=== PATIENT | female | born 1955 | race Hispanic/Latino ===

== ENCOUNTER 2019-09-23 17:13 | Emergency (ER) | payer MEDICAID, SELFPAY ==
[2019-09-23 18:36] LABS: #Eosinphils 0.2 thou/uL (0.0-0.7); #Lymphocytes 1.7 thou/uL (1.20-3.40); #Monocytes 0.6 thou/uL (0.11-0.59); #Neutrophils 4.3 thou/uL (1.40-6.50); %Basophils 0.6 % (0.0-1.0); %Eosinophils 3.4 % (0.0-10.0); %Lymphocytes 24.4 % (21.0-51.0); %Monocytes 8.8 % (0.0-10.0); %Neutrophils 62.8 % (42.0-75.0); Hemoglobin 12.1 g/dL (12.0-16.0); Mean Corpuscular HGB CONC 34.4 g/dL (32.0-36.0); Mean Corpuscular Hemoglobin 31.1 pg (27.0-31.0); Mean Corpuscular Volume 90.4 fL (78.0-98.0); Mean Platelet Volume 8.1 fL (7.4-10.4); Platelet Count 290 thou/uL (130-400); RBC Distribution Width 13.1 % (11.5-14.5); Red Blood Cell (RBC) Count 3.89 mill/uL (4.20-5.40); White Blood Cell (WBC) Count 6.9 thou/uL (4.8-10.8)
[2019-09-23 18:58] LABS: ALT (SGPT) 8 U/L (8-55); AST (SGOT) 16 U/L (5-34); Albumin 2.8 g/dL (3.4-4.8); Alkaline Phosphatase 136 U/L (40-110); Anion Gap 11 mmol/L (10-20); BUN (Urea Nitrogen) 35 mg/dL (9.8-20.1); Bilirubin, Total Less than 0.2 mg/dL (0.2-1.2); Calc. Creatinine Clearance 0 mL/min (70-130); Calcium 7.6 mg/dL (7.8-10.44); Carbon Dioxide 22 mmol/L (23-31); Chloride 111 mmol/L (98-107); Estimated GFR-MDRD 17; Globulin 2.8 g/dL (2.4-3.5); Glucose 135 mg/dL (80-115); Protein, Total 5.6 g/dL (6.0-8.3); Sodium 139 mmol/L (136-145)
[2019-09-23] MEDS ORDERED: hydrALAZINE 20 MG/ML VIAL ONE (21:56)
[2019-09-23 22:39] LABS: CKMB 1.6 ng/mL (0-6.6)
[2019-09-23 23:04] LABS: CKMB 1.7 ng/mL (0-6.6)
== END 2019-09-23 22:56 | disposition home or self-care (01) ==
LOC: ERS 17:13
DX: I11.9 Hypertensive heart disease without heart failure (principal); E78.5 Hyperlipidemia, unspecified; E78.00 Pure hypercholesterolemia, unspecified; E11.9 Type 2 diabetes mellitus without complications; E66.9 Obesity, unspecified; I10 Essential (primary) hypertension; Z79.82 Long term (current) use of aspirin; Z79.899 Other long term (current) drug therapy
CPT/HCPCS: 36415; 80053; 82553; 84484; 85025; 93005; 96374; J0360

== ENCOUNTER 2020-06-09 11:22 | Inpatient (IN) | payer SELFPAY ==
[2020-06-09 12:03] LABS: #Basophils 0.1 thou/uL (0.0-0.2); #Eosinphils 0.5 thou/uL (0.0-0.7); #Lymphocytes 1.3 thou/uL (1.20-3.40); #Monocytes 0.6 thou/uL (0.11-0.59); #Neutrophils 6.1 thou/uL (1.40-6.50); %Basophils 1.2 % (0.0-1.0); %Eosinophils 5.8 % (0.0-10.0); %Lymphocytes 15.4 % (21.0-51.0); %Monocytes 7.4 % (0.0-10.0); %Neutrophils 70.3 % (42.0-75.0); Mean Corpuscular HGB CONC 33.8 g/dL (32.0-36.0); Mean Corpuscular Hemoglobin 30.7 pg (27.0-31.0); Mean Corpuscular Volume 90.8 fL (78.0-98.0); Mean Platelet Volume 7.8 fL (7.4-10.4); Platelet Count 286 thou/uL (130-400); RBC Distribution Width 12.6 % (11.5-14.5); Red Blood Cell (RBC) Count 2.62 mill/uL (4.20-5.40); White Blood Cell (WBC) Count 8.7 thou/uL (4.8-10.8)
[2020-06-09 12:30] LABS: ALT (SGPT) 9 U/L (8-55); AST (SGOT) 11 U/L (5-34); Albumin 3.4 g/dL (3.4-4.8); Alkaline Phosphatase 131 U/L (40-110); Anion Gap 18 mmol/L (10-20); BUN (Urea Nitrogen) 73 mg/dL (9.8-20.1); Bilirubin, Total 0.3 mg/dL (0.2-1.2); Calc. Creatinine Clearance 0 mL/min (70-130); Calcium 7.7 mg/dL (7.8-10.44); Carbon Dioxide 16 mmol/L (23-31); Chloride 111 mmol/L (98-107); Globulin 3.2 g/dL (2.4-3.5); Glucose 132 mg/dL (80-115); Potassium 4.7 mmol/L (3.5-5.1); Protein, Total 6.6 g/dL (5.8-8.1); Sodium 140 mmol/L (136-145)
[2020-06-09 12:46] LABS: Bacteria/HPF None Seen HPF (None Seen); Bilirubin Negative (Negative); Blood, Urine Trace (Negative); Clarity Clear (Clear); Glucose, Urine (Dipstick) 100 mg/dL (Negative); Ketone, Urine Negative (Negative); Leukocyte 25 Leu/uL (Negative); Nitrite Negative (Negative); Protein, Urine (Dipstick) 300 mg/dL (Neg-Trace); RBC/HPF 0-3 HPF (0-3); Specific Gravity, Urine 1.012 (1.002-1.036); Squamous Epithelial 0-3 HPF (0-3); Urobilinogen Normal mg/dL (Less than 2)
[2020-06-09] MEDS ORDERED: cefTRIAXone\\ROCEPHIN 1 GM VIAL ONE (14:18)
[2020-06-09] MEDS ORDERED: hydrALAZINE 20 MG/ML VIAL SLOW IVP PRN (14:44)
[2020-06-09] MEDS ORDERED: hydrALAZINE 20 MG/ML VIAL ONE (14:57)
[2020-06-09] MEDS ORDERED: Furosemide 20 MG/2 ML VIAL ONE ×2 (14:58→15:02)
[2020-06-09] MEDS ORDERED: cloNIDine 0.1 MG TAB ONE (14:58)
[2020-06-09] MEDS ORDERED: Acetaminophen 325 MG TAB PO PRN (17:11)
[2020-06-09] MEDS ORDERED: Acetaminophen 650 MG Suppository PR PRN (17:11)
[2020-06-09] MEDS ORDERED: Dextrose 5% in Water 1,000 ML IV PRN (17:52)
[2020-06-09] MEDS ORDERED: HumaLOG 300 UNITS/3 ML VIAL SC PRN ×2 (17:52)
[2020-06-09] MEDS ORDERED: Dextrose 50% Abboject 50 ML SYRINGE SLOW IVP PRN (17:52)
[2020-06-09 18:05] VITALS: BMI 47.8
[2020-06-09 18:28] LABS: Anion Gap 18 mmol/L (10-20); BUN (Urea Nitrogen) 69 mg/dL (9.8-20.1); Calc. Creatinine Clearance 19 mL/min (70-130); Calcium 7.1 mg/dL (7.8-10.44); Carbon Dioxide 15 mmol/L (23-31); Chloride 112 mmol/L (98-107); Glucose 101 mg/dL (80-115); Phosphorus 5.5 mg/dL (2.3-4.7); Potassium 4.5 mmol/L (3.5-5.1); Sodium 140 mmol/L (136-145)
[2020-06-09] MEDS: Metoprolol Tartrate 50 MG TAB PO SCH (20:07)
[2020-06-09] MEDS: hydrALAZINE 25 MG TAB PO SCH (20:08)
[2020-06-09] MEDS ORDERED: Atorvastatin Calcium 20 MG TAB PO SCH (21:00)
[2020-06-10 02:23] LABS: SARS-CoV-2 PCR by NAA Not Detected (NotDetected)
[2020-06-10 06:21] LABS: #Basophils 0.1 thou/uL (0.0-0.2); #Eosinphils 0.4 thou/uL (0.0-0.7); #Lymphocytes 1.3 thou/uL (1.20-3.40); #Monocytes 0.7 thou/uL (0.11-0.59); #Neutrophils 5.4 thou/uL (1.40-6.50); %Basophils 0.9 % (0.0-1.0); %Eosinophils 5.6 % (0.0-10.0); %Lymphocytes 16.7 % (21.0-51.0); %Monocytes 8.4 % (0.0-10.0); %Neutrophils 68.4 % (42.0-75.0); Hemoglobin 7.3 g/dL (12.0-16.0); Mean Corpuscular HGB CONC 32.7 g/dL (32.0-36.0); Mean Corpuscular Hemoglobin 29.6 pg (27.0-31.0); Mean Corpuscular Volume 90.6 fL (78.0-98.0); Mean Platelet Volume 7.8 fL (7.4-10.4); Platelet Count 257 thou/uL (130-400); RBC Distribution Width 12.6 % (11.5-14.5); Red Blood Cell (RBC) Count 2.45 mill/uL (4.20-5.40); White Blood Cell (WBC) Count 7.8 thou/uL (4.8-10.8)
[2020-06-10 06:38] LABS: Anion Gap 18 mmol/L (10-20); BUN (Urea Nitrogen) 69 mg/dL (9.8-20.1); Calc. Creatinine Clearance 18 mL/min (70-130); Calcium 7.4 mg/dL (7.8-10.44); Carbon Dioxide 16 mmol/L (23-31); Chloride 109 mmol/L (98-107); Glucose 91 mg/dL (80-115); Potassium 4.7 mmol/L (3.5-5.1); Sodium 138 mmol/L (136-145)
[2020-06-10] MEDS ORDERED: glipiZIDE 5 MG TAB PO SCH (07:30)
[2020-06-10] MEDS: hydrALAZINE 25 MG TAB PO SCH ×2 (07:54→14:53)
[2020-06-10] MEDS: Metoprolol Tartrate 50 MG TAB PO SCH (07:54)
[2020-06-10 09:45] LABS: Anion Gap 17 mmol/L (10-20); BUN (Urea Nitrogen) 69 mg/dL (9.8-20.1); Calc. Creatinine Clearance 18 mL/min (70-130); Calcium 7.4 mg/dL (7.8-10.44); Carbon Dioxide 17 mmol/L (23-31); Chloride 109 mmol/L (98-107); Glucose 123 mg/dL (80-115); Potassium 4.6 mmol/L (3.5-5.1); Sodium 138 mmol/L (136-145)
[2020-06-10] MEDS: Sodium Bicarbonate Tab 325 MG TAB PO SCH ×2 (10:51→14:53)
[2020-06-10 11:36] VITALS: TEMP 97.9
[2020-06-10 16:00] VITALS: BP 176/77
[2020-06-10] MEDS ORDERED: Calcium Carbonate 500 MG ChewTAB PO SCH (21:00)
[2020-06-11] MEDS ORDERED: Ferrous Gluconate 324 MG TAB PO SCH (08:00)
== END 2020-06-10 16:35 | disposition home or self-care (01) | DRG 683 ==
LOC: ERS 11:22 → T4-B 14:39
PROVIDERS: ADMIT Internal Medicine; ATTEND Internal Medicine
DX: N17.9 Acute kidney failure, unspecified (principal); E87.2 Acidosis; I12.0 Hypertensive chronic kidney disease with stage 5 chronic kidney disease or end stage renal disease; N39.0 Urinary tract infection, site not specified; Z68.42 Body mass index [BMI] 45.0-49.9, adult; I16.0 Hypertensive urgency; E87.5 Hyperkalemia; E66.9 Obesity, unspecified; K52.9 Noninfective gastroenteritis and colitis, unspecified; N18.5 Chronic kidney disease, stage 5; E78.00 Pure hypercholesterolemia, unspecified; D63.1 Anemia in chronic kidney disease; E83.51 Hypocalcemia; E11.22 Type 2 diabetes mellitus with diabetic chronic kidney disease; Z20.822 Contact with and (suspected) exposure to COVID-19; Z90.710 Acquired absence of both cervix and uterus; Z90.49 Acquired absence of other specified parts of digestive tract; Z79.899 Other long term (current) drug therapy; Z79.82 Long term (current) use of aspirin; Z83.3 Family history of diabetes mellitus
CPT/HCPCS: 36415; 36416; 80048; 80053; 81003; 81015; 83735; 84100; 85025; 87635; 93005; 96365; 96375; J0360; J0696; J1940; U0003; U0005

== ENCOUNTER 2020-11-24 13:40 | Observation (INO) | payer MEDICAID, SELFPAY ==
[2020-11-24 14:32] LABS: #Basophils 0.1 thou/uL (0.0-0.2); #Eosinphils 0.3 thou/uL (0.0-0.7); #Lymphocytes 1.3 thou/uL (1.20-3.40); #Monocytes 0.9 thou/uL (0.11-0.59); #Neutrophils 6.2 thou/uL (1.40-6.50); %Basophils 0.6 % (0.0-1.0); %Eosinophils 3.4 % (0.0-10.0); %Lymphocytes 14.7 % (21.0-51.0); %Monocytes 10.6 % (0.0-10.0); %Neutrophils 70.7 % (42.0-75.0); Hemoglobin 6.8 g/dL (12.0-16.0); Mean Corpuscular HGB CONC 33.8 g/dL (32.0-36.0); Mean Corpuscular Hemoglobin 29.4 pg (27.0-31.0); Mean Corpuscular Volume 86.9 fL (78.0-98.0); Mean Platelet Volume 7.3 fL (7.4-10.4); Platelet Count 304 thou/uL (130-400); RBC Distribution Width 14.7 % (11.5-14.5); Red Blood Cell (RBC) Count 2.31 mill/uL (4.20-5.40); White Blood Cell (WBC) Count 8.8 thou/uL (4.8-10.8)
[2020-11-24 15:00] LABS: ALT (SGPT) 9 U/L (8-55); AST (SGOT) 10 U/L (5-34); Albumin 3.7 g/dL (3.4-4.8); Alkaline Phosphatase 115 U/L (40-110); Anion Gap 11 mmol/L (10-20); BUN (Urea Nitrogen) 79 mg/dL (9.8-20.1); Bilirubin, Total 0.3 mg/dL (0.2-1.2); Calc. Creatinine Clearance 0 mL/min (70-130); Calcium 8.4 mg/dL (7.8-10.44); Carbon Dioxide 24 mmol/L (23-31); Chloride 107 mmol/L (98-107); Globulin 2.6 g/dL (2.4-3.5); Glucose 143 mg/dL (80-115); Magnesium 2.4 mg/dL (1.6-2.6); Potassium 5.1 mmol/L (3.5-5.1); Protein, Total 6.3 g/dL (5.8-8.1); Sodium 137 mmol/L (136-145)
[2020-11-24] MEDS ORDERED: Famotidine 20 MG TAB PO SCH (21:00)
[2020-11-24] MEDS ORDERED: HumaLOG 300 UNITS/3 ML VIAL SC PRN ×2 (21:17)
[2020-11-24] MEDS ORDERED: Acetaminophen 325 MG TAB PO PRN (21:17)
[2020-11-24] MEDS ORDERED: Dextrose 5% in Water 1,000 ML IV PRN (21:17)
[2020-11-24] MEDS ORDERED: Dextrose 50% Abboject 50 ML SYRINGE SLOW IVP PRN (21:17)
[2020-11-24 22:11] LABS: Iron 76 ug/dL (50-170); Iron Binding Capacity, Total 291 mcg/dL (265-497)
[2020-11-24] MEDS: hydrALAZINE 20 MG/ML VIAL SLOW IVP PRN (22:40)
[2020-11-24 23:03] VITALS: BMI 37.8
[2020-11-25] MEDS: hydrALAZINE 20 MG/ML VIAL SLOW IVP PRN ×2 (04:14→08:42)
[2020-11-25 04:20] LABS: #Eosinphils 0.3 thou/uL (0.0-0.7); #Lymphocytes 1.2 thou/uL (1.20-3.40); #Monocytes 0.9 thou/uL (0.11-0.59); #Neutrophils 5.5 thou/uL (1.40-6.50); %Basophils 0.6 % (0.0-1.0); %Eosinophils 3.4 % (0.0-10.0); %Lymphocytes 15.2 % (21.0-51.0); %Monocytes 11.4 % (0.0-10.0); %Neutrophils 69.4 % (42.0-75.0); Hemoglobin 7.6 g/dL (12.0-16.0); Mean Corpuscular HGB CONC 34.7 g/dL (32.0-36.0); Mean Corpuscular Hemoglobin 30.1 pg (27.0-31.0); Mean Corpuscular Volume 86.9 fL (78.0-98.0); Mean Platelet Volume 7.4 fL (7.4-10.4); Platelet Count 266 thou/uL (130-400); RBC Distribution Width 14.2 % (11.5-14.5); Red Blood Cell (RBC) Count 2.53 mill/uL (4.20-5.40); White Blood Cell (WBC) Count 7.9 thou/uL (4.8-10.8)
[2020-11-25 04:45] LABS: Anion Gap 16 mmol/L (10-20); BUN (Urea Nitrogen) 74 mg/dL (9.8-20.1); Calc. Creatinine Clearance 14 mL/min (70-130); Calcium 8.5 mg/dL (7.8-10.44); Carbon Dioxide 17 mmol/L (23-31); Chloride 109 mmol/L (98-107); Glucose 82 mg/dL (80-115); Potassium 4.5 mmol/L (3.5-5.1); Sodium 137 mmol/L (136-145)
[2020-11-25] MEDS ORDERED: NIFEdipine XL 60 MG TAB PO SCH (09:00)
[2020-11-25] MEDS ORDERED: hydrALAZINE 25 MG TAB PO SCH (09:00)
[2020-11-25] MEDS ORDERED: Metolazone 5 MG TAB PO SCH (09:00)
[2020-11-25] MEDS ORDERED: Metoprolol Tartrate 50 MG TAB PO SCH (09:00)
[2020-11-25] MEDS ORDERED: EPOETIN ALFA-EPBX (ESRD) 10,000 UNIT/ML VIAL SC SCH (11:00)
[2020-11-25 12:16] VITALS: BP 160/67; TEMP 98.1
[2020-11-25 12:39] LABS: HBSAg Index 0.26 S/CO (0-0.99); Hep B Surf Ag Non-Reactive S/CO (NonReactive)
[2020-11-25] MEDS ORDERED: Sodium Bicarbonate Tab 325 MG TAB PO SCH (15:00)
[2020-11-25 20:58] LABS: SARS-CoV-2 PCR by NAA Not Detected (NotDetected)
== END 2020-11-25 13:55 | disposition home or self-care (01) ==
LOC: ERS 13:40 → 2NO 17:17
PROVIDERS: ADMIT Internal Medicine; ATTEND Internal Medicine
DX: I12.0 Hypertensive chronic kidney disease with stage 5 chronic kidney disease or end stage renal disease (principal); E11.22 Type 2 diabetes mellitus with diabetic chronic kidney disease; N18.5 Chronic kidney disease, stage 5; D63.1 Anemia in chronic kidney disease; E87.2 Acidosis; E78.5 Hyperlipidemia, unspecified; E78.00 Pure hypercholesterolemia, unspecified; E66.9 Obesity, unspecified; Z68.37 Body mass index [BMI] 37.0-37.9, adult; Z20.822 Contact with and (suspected) exposure to COVID-19; Z79.84 Long term (current) use of oral hypoglycemic drugs; Z79.82 Long term (current) use of aspirin; Z79.899 Other long term (current) drug therapy; Z90.710 Acquired absence of both cervix and uterus; Z90.49 Acquired absence of other specified parts of digestive tract
CPT/HCPCS: 36415; 36416; 36430; 80048; 80053; 82274; 82728; 83540; 83550; 83735; 85025; 86850; 86900; 86901; 87340; 93005; 94760; 96372; 96374; 96376; G0378; J0360; P9016; Q5105; U0003; U0005

== ENCOUNTER 2020-11-27 10:10 | Inpatient (IN) | payer MEDICAID, SELFPAY ==
[2020-11-27 10:45] LABS: Bilirubin Negative (Negative); Blood, Urine Trace (Negative); Clarity Clear (Clear); Glucose, Urine (Dipstick) Normal (Negative); Ketone, Urine Negative (Negative); Leukocyte Negative Leu/uL (Negative); Nitrite Negative (Negative); Protein, Urine (Dipstick) 300 mg/dL (Neg-Trace); RBC/HPF 0-3 HPF (0-3); Specific Gravity, Urine 1.009 (1.002-1.036); Squamous Epithelial 0-3 HPF (0-3); Urobilinogen Normal mg/dL (Less than 2); WBC/HPF 0-3 HPF (0-3); pH, Urine 6.5 (5.0-9.0)
[2020-11-27 10:47] LABS: Bacteria/HPF Rare-Few HPF (None Seen)
[2020-11-27 10:56] LABS: #Basophils 0.1 thou/uL (0.0-0.2); #Eosinphils 0.3 thou/uL (0.0-0.7); #Lymphocytes 1.1 thou/uL (1.20-3.40); #Monocytes 0.7 thou/uL (0.11-0.59); #Neutrophils 6.1 thou/uL (1.40-6.50); %Basophils 0.7 % (0.0-1.0); %Eosinophils 3.5 % (0.0-10.0); %Lymphocytes 13.7 % (21.0-51.0); %Monocytes 8.9 % (0.0-10.0); %Neutrophils 73.2 % (42.0-75.0); Hemoglobin 8.6 g/dL (12.0-16.0); Mean Corpuscular HGB CONC 32.5 g/dL (32.0-36.0); Mean Corpuscular Hemoglobin 28.3 pg (27.0-31.0); Mean Corpuscular Volume 87.2 fL (78.0-98.0); Mean Platelet Volume 7.2 fL (7.4-10.4); Platelet Count 330 thou/uL (130-400); RBC Distribution Width 14.3 % (11.5-14.5); Red Blood Cell (RBC) Count 3.02 mill/uL (4.20-5.40); White Blood Cell (WBC) Count 8.3 thou/uL (4.8-10.8)
[2020-11-27 11:22] LABS: ALT (SGPT) 9 U/L (8-55); AST (SGOT) 12 U/L (5-34); Albumin 3.7 g/dL (3.4-4.8); Alkaline Phosphatase 105 U/L (40-110); Anion Gap 15 mmol/L (10-20); BUN (Urea Nitrogen) 78 mg/dL (9.8-20.1); Bilirubin, Total 0.3 mg/dL (0.2-1.2); Calc. Creatinine Clearance 0 mL/min (70-130); Calcium 8.8 mg/dL (7.8-10.44); Carbon Dioxide 20 mmol/L (23-31); Chloride 106 mmol/L (98-107); Globulin 3.4 g/dL (2.4-3.5); Glucose 104 mg/dL (80-115); Potassium 4.6 mmol/L (3.5-5.1); Protein, Total 7.1 g/dL (5.8-8.1); Sodium 136 mmol/L (136-145)
[2020-11-27] MEDS ORDERED: Ondansetron PF 4 MG/2 ML Vial IVP PRN (13:58)
[2020-11-27] MEDS ORDERED: Bisacodyl 5 MG TAB PO PRN (13:58)
[2020-11-27] MEDS ORDERED: hydrALAZINE 20 MG/ML VIAL SLOW IVP PRN (14:18)
[2020-11-27] MEDS ORDERED: Labetalol HCl 100 MG/20 ML VIAL SLOW IVP SCH (14:30)
[2020-11-27] MEDS: hydrALAZINE 25 MG TAB PO SCH (15:30)
[2020-11-28] MEDS ORDERED: Acetaminophen 325 MG TAB ONE (01:04)
[2020-11-28] MEDS: Metoprolol Tartrate 50 MG TAB PO SCH ×3 (01:09→21:00)
[2020-11-28] MEDS: Acetaminophen 325 MG TAB PO PRN (01:09)
[2020-11-28] MEDS: hydrALAZINE 25 MG TAB PO SCH ×4 (01:09→21:00)
[2020-11-28 05:28] LABS: #Eosinphils 0.2 thou/uL (0.0-0.7); #Lymphocytes 1.3 thou/uL (1.20-3.40); #Monocytes 0.9 thou/uL (0.11-0.59); %Basophils 0.5 % (0.0-1.0); %Eosinophils 2.4 % (0.0-10.0); %Lymphocytes 15.7 % (21.0-51.0); %Monocytes 11.1 % (0.0-10.0); %Neutrophils 70.3 % (42.0-75.0); Hemoglobin 7.7 g/dL (12.0-16.0); Mean Corpuscular HGB CONC 33.8 g/dL (32.0-36.0); Mean Corpuscular Hemoglobin 29.5 pg (27.0-31.0); Mean Corpuscular Volume 87.3 fL (78.0-98.0); Mean Platelet Volume 7.5 fL (7.4-10.4); Platelet Count 271 thou/uL (130-400); RBC Distribution Width 14.5 % (11.5-14.5); Red Blood Cell (RBC) Count 2.61 mill/uL (4.20-5.40); White Blood Cell (WBC) Count 8.5 thou/uL (4.8-10.8)
[2020-11-28 06:01] LABS: Anion Gap 15 mmol/L (10-20); BUN (Urea Nitrogen) 75 mg/dL (9.8-20.1); Calc. Creatinine Clearance 0 mL/min (70-130); Calcium 8.4 mg/dL (7.8-10.44); Carbon Dioxide 18 mmol/L (23-31); Chloride 109 mmol/L (98-107); Glucose 88 mg/dL (80-115); Potassium 4.1 mmol/L (3.5-5.1); Sodium 138 mmol/L (136-145)
[2020-11-28] MEDS ORDERED: GUAIFENESIN SF SOLN 200 MG/10 ML UDCUP PO PRN (07:55)
[2020-11-28] MEDS ORDERED: Labetalol HCl 100 MG/20 ML VIAL SLOW IVP PRN (07:55)
[2020-11-28] MEDS ORDERED: Sodium Chloride 0.65% Nasal 44 ML BOT EA NARE PRN (07:55)
[2020-11-28] MEDS ORDERED: Zolpidem Tartrate 5 MG TAB PO PRN (07:55)
[2020-11-28] MEDS ORDERED: Cepastat Lozenges 1 LOZ PO PRN (07:55)
[2020-11-28] MEDS ORDERED: Artificial Tear Sol 15 ML BOT EA EYE PRN (07:55)
[2020-11-28] MEDS ORDERED: Loratadine 10 MG TAB PO PRN (07:55)
[2020-11-28] MEDS ORDERED: Benzonatate 100 MG CAP PO PRN (07:55)
[2020-11-28] MEDS ORDERED: Hydrocerin (Eucerin) Cream 120 gm Jar TOP PRN (07:55)
[2020-11-28] MEDS ORDERED: Calcium Carbonate 500 MG ChewTAB PO PRN (07:55)
[2020-11-28] MEDS ORDERED: Loperamide HCl 2 MG CAP PO PRN (07:55)
[2020-11-28] MEDS ORDERED: Metoprolol Tartrate 50 MG TAB ONE (09:15)
[2020-11-28] MEDS: Ferrous Sulfate 325 MG TAB PO SCH (10:16)
[2020-11-28] MEDS: NIFEdipine XL 60 MG TAB PO SCH (10:17)
[2020-11-28] MEDS ORDERED: cloNIDine 0.1 MG TAB PO SCH (11:30)
[2020-11-28 12:29] LABS: HBSAg Index 0.22 S/CO (0-0.99); Hep B Surf Ag Non-Reactive S/CO (NonReactive)
[2020-11-28] MEDS ORDERED: Heparin 10,000 UNITS/ 10 ML VIAL ONE (14:19)
[2020-11-28] MEDS: Folic Acid/Vit B Comp W-C PO SCH (16:26)
[2020-11-28 18:14] VITALS: BMI 37.5
[2020-11-29 02:13] LABS: SARS-CoV-2 PCR by NAA Not Detected (NotDetected)
[2020-11-29] MEDS ORDERED: CEFAZOLIN 2 GM in Premix Bag 1 BAG IVPB SCH (07:45)
[2020-11-29 08:26] LABS: #Basophils 0.1 thou/uL (0.0-0.2); #Eosinphils 0.3 thou/uL (0.0-0.7); #Lymphocytes 1.1 thou/uL (1.20-3.40); #Monocytes 0.7 thou/uL (0.11-0.59); %Basophils 0.7 % (0.0-1.0); %Eosinophils 3.2 % (0.0-10.0); %Lymphocytes 13.8 % (21.0-51.0); %Monocytes 9.1 % (0.0-10.0); %Neutrophils 73.2 % (42.0-75.0); Hemoglobin 8.4 g/dL (12.0-16.0); Mean Corpuscular HGB CONC 33.3 g/dL (32.0-36.0); Mean Corpuscular Hemoglobin 28.9 pg (27.0-31.0); Mean Corpuscular Volume 86.8 fL (78.0-98.0); Mean Platelet Volume 7.3 fL (7.4-10.4); Platelet Count 325 thou/uL (130-400); RBC Distribution Width 14.6 % (11.5-14.5); Red Blood Cell (RBC) Count 2.92 mill/uL (4.20-5.40); White Blood Cell (WBC) Count 8.2 thou/uL (4.8-10.8)
[2020-11-29 08:37] LABS: Phosphorus 4.1 mg/dL (2.3-4.7)
[2020-11-29 08:40] LABS: Anion Gap 14 mmol/L (10-20); BUN (Urea Nitrogen) 38 mg/dL (9.8-20.1); Calc. Creatinine Clearance 17 mL/min (70-130); Calcium 8.9 mg/dL (7.8-10.44); Carbon Dioxide 25 mmol/L (23-31); Chloride 103 mmol/L (98-107); Glucose 97 mg/dL (80-115); Magnesium 2.1 mg/dL (1.6-2.6); Potassium 4.1 mmol/L (3.5-5.1); Sodium 138 mmol/L (136-145)
[2020-11-29] MEDS: Metoprolol Tartrate 50 MG TAB PO SCH ×2 (08:50→20:19)
[2020-11-29] MEDS: hydrALAZINE 25 MG TAB PO SCH ×3 (08:50→20:19)
[2020-11-29] MEDS: Folic Acid/Vit B Comp W-C PO SCH (08:51)
[2020-11-29] MEDS: NIFEdipine XL 60 MG TAB PO SCH (08:51)
[2020-11-29] MEDS: Ferrous Sulfate 325 MG TAB PO SCH (08:51)
[2020-11-29] MEDS ORDERED: Sodium Chloride 0.9% 30 ML ONE (12:54)
[2020-11-29] MEDS ORDERED: Bupivacaine PF 0.5% 30 ML VIAL ONE (12:54)
[2020-11-29] MEDS ORDERED: Protamine Sulfate 50 MG/5 ML VIAL ONE (12:54)
[2020-11-29] MEDS ORDERED: Lidocaine 1% w/Epinephrine 1:100K 20 ML VIAL ONE (12:54)
[2020-11-29] MEDS ORDERED: Heparin 10,000 UNITS/ 10 ML VIAL ONE (12:54)
[2020-11-29] MEDS ORDERED: Heparin 5,000 UNITS/ML VIAL ONE (12:54)
[2020-11-29] MEDS ORDERED: Fentanyl 100 MCG/2 ML VIAL ONE ×2 (13:08→15:39)
[2020-11-29] MEDS ORDERED: Dexamethasone 20 MG/5 ML VIAL ONE (13:33)
[2020-11-29] MEDS ORDERED: Lidocaine 1% PF 5 ML VIAL ONE (13:33)
[2020-11-29] MEDS ORDERED: ePHEDrine 50 MG/ML VIAL ONE (13:33)
[2020-11-29] MEDS ORDERED: PROPOFOL 200 MG/20 ML VIAL ONE (13:33)
[2020-11-29] MEDS ORDERED: Rocuronium Bromide 10 MG/ML (10ML VIAL) ONE (13:33)
[2020-11-29] MEDS ORDERED: Calcium Chloride 1 GM/10 ML Abboject SYRINGE ONE (13:33)
[2020-11-29] MEDS ORDERED: PHENYLEPHRINE-NS 100 MCG/ML 10 ML SYRINGE ONE (13:33)
[2020-11-29] MEDS ORDERED: Glycopyrrolate 0.2 MG/ML 5 ML SYRINGE ONE (13:33)
[2020-11-29] MEDS ORDERED: Ondansetron PF 4 MG/2 ML Vial ONE (13:33)
[2020-11-29] MEDS ORDERED: HYDROmorphone 2 MG/ML VIAL SLOW IVP PRN (15:23)
[2020-11-29] MEDS ORDERED: Promethazine HCl 25 MG/ML VIAL IVPB PRN (15:23)
[2020-11-29] MEDS ORDERED: Promethazine HCl 25 MG/ML VIAL IM PRN (15:23)
[2020-11-29] MEDS ORDERED: Ondansetron HCl/PF 4 MG/2 ML Vial IVP PRN (15:23)
[2020-11-29] MEDS ORDERED: traMADol HCl 50 MG TAB PO PRN (15:34)
[2020-11-29] MEDS: Ondansetron ODT 4 MG TAB SL PRN (16:33)
[2020-11-29] MEDS: Acetaminophen 325 MG TAB PO PRN ×2 (16:33→23:11)
[2020-11-30] MEDS: Ondansetron ODT 4 MG TAB SL PRN (01:30)
[2020-11-30 05:36] LABS: #Lymphocytes 1.2 thou/uL (1.20-3.40); #Neutrophils 8.7 thou/uL (1.40-6.50); %Basophils 0.3 % (0.0-1.0); %Eosinophils 0.1 % (0.0-10.0); %Lymphocytes 10.8 % (21.0-51.0); %Monocytes 9.1 % (0.0-10.0); %Neutrophils 79.7 % (42.0-75.0); Hemoglobin 7.7 g/dL (12.0-16.0); Mean Corpuscular HGB CONC 33.3 g/dL (32.0-36.0); Mean Corpuscular Hemoglobin 29.2 pg (27.0-31.0); Mean Corpuscular Volume 87.5 fL (78.0-98.0); Platelet Count 312 thou/uL (130-400); RBC Distribution Width 14.4 % (11.5-14.5); Red Blood Cell (RBC) Count 2.63 mill/uL (4.20-5.40); White Blood Cell (WBC) Count 10.9 thou/uL (4.8-10.8)
[2020-11-30 05:56] LABS: Anion Gap 16 mmol/L (10-20); BUN (Urea Nitrogen) 44 mg/dL (9.8-20.1); Calc. Creatinine Clearance 15 mL/min (70-130); Calcium 8.7 mg/dL (7.8-10.44); Carbon Dioxide 21 mmol/L (23-31); Chloride 103 mmol/L (98-107); Glucose 93 mg/dL (80-115); Potassium 4.2 mmol/L (3.5-5.1); Sodium 136 mmol/L (136-145)
[2020-11-30] MEDS: NIFEdipine XL 60 MG TAB PO SCH (08:31)
[2020-11-30] MEDS: hydrALAZINE 25 MG TAB PO SCH ×3 (08:32→20:57)
[2020-11-30] MEDS: Metoprolol Tartrate 50 MG TAB PO SCH ×2 (08:32→20:57)
[2020-11-30] MEDS: Folic Acid/Vit B Comp W-C PO SCH (08:32)
[2020-11-30] MEDS: Ferrous Sulfate 325 MG TAB PO SCH (08:32)
[2020-11-30] MEDS: Senokot S 8.6-50 MG TAB PO PRN ×2 (09:00→21:01)
[2020-11-30] MEDS ORDERED: Heparin 10,000 UNITS/ 10 ML VIAL ONE (09:43)
[2020-11-30] MEDS: HYDROcodone/Acetaminophen 5/325 mg Tablet PO PRN ×2 (15:34→21:09)
[2020-12-01] MEDS: HYDROcodone/Acetaminophen 5/325 mg Tablet PO PRN (08:02)
[2020-12-01] MEDS: Metoprolol Tartrate 50 MG TAB PO SCH (08:03)
[2020-12-01] MEDS: hydrALAZINE 25 MG TAB PO SCH ×2 (08:03→15:34)
[2020-12-01] MEDS: NIFEdipine XL 60 MG TAB PO SCH (08:03)
[2020-12-01] MEDS: Folic Acid/Vit B Comp W-C PO SCH (08:03)
[2020-12-01] MEDS: Ferrous Sulfate 325 MG TAB PO SCH (08:04)
[2020-12-01 15:33] VITALS: BP 117/64; TEMP 98.1
== END 2020-12-01 16:50 | disposition home or self-care (01) | DRG 673 ==
LOC: ERS 10:10 → ERHOLD 12:49 → T4-A 11-28 17:21
PROVIDERS: ADMIT Internal Medicine; ATTEND Internal Medicine
PROC: 5A1D70Z Performance of Urinary Filtration, Intermittent, Less than 6 Hours Per Day (ICD-10-PCS; principal; 2020-11-27)
PROC: 06HY33Z Insertion of Infusion Device into Lower Vein, Percutaneous Approach (ICD-10-PCS; 2020-11-27)
PROC: 031B0ZF Bypass Right Radial Artery to Lower Arm Vein, Open Approach (ICD-10-PCS; 2020-11-29)
PROC: 0JH60XZ Insertion of Tunneled Vascular Access Device into Chest Subcutaneous Tissue and Fascia, Open Approach (ICD-10-PCS; 2020-11-29)
PROC: 02HV33Z Insertion of Infusion Device into Superior Vena Cava, Percutaneous Approach (ICD-10-PCS; 2020-11-29)
PROC: 02HV33Z Insertion of Infusion Device into Superior Vena Cava, Percutaneous Approach (ICD-10-PCS; 2020-11-29)
PROC: B5181ZA Fluoroscopy of Superior Vena Cava using Low Osmolar Contrast, Guidance (ICD-10-PCS; 2020-11-29)
PROC: B548ZZA Ultrasonography of Superior Vena Cava, Guidance (ICD-10-PCS; 2020-11-29)
DX: I12.0 Hypertensive chronic kidney disease with stage 5 chronic kidney disease or end stage renal disease (principal); N18.6 End stage renal disease; N17.9 Acute kidney failure, unspecified; Z20.822 Contact with and (suspected) exposure to COVID-19; D63.1 Anemia in chronic kidney disease; E11.22 Type 2 diabetes mellitus with diabetic chronic kidney disease; E78.5 Hyperlipidemia, unspecified; E88.81 Metabolic syndrome and other insulin resistance; E66.01 Morbid (severe) obesity due to excess calories; E78.00 Pure hypercholesterolemia, unspecified; I16.0 Hypertensive urgency; Z68.37 Body mass index [BMI] 37.0-37.9, adult; Z28.21 Immunization not carried out because of patient refusal; Z90.49 Acquired absence of other specified parts of digestive tract; Z79.899 Other long term (current) drug therapy; Z79.84 Long term (current) use of oral hypoglycemic drugs; Z90.710 Acquired absence of both cervix and uterus; Z83.3 Family history of diabetes mellitus
CPT/HCPCS: 36415; 36416; 71045; 80048; 80053; 81003; 81015; 83735; 84100; 85025; 87340; 90935; 93970; 99284; C1751; C1752; G0257; J0690; J1100; J1642; J1644; J2405; J2704; J2720; J3010; J3490; Q0162; S0020; U0003; U0005

== ENCOUNTER 2020-12-31 11:22 | Inpatient (IN) | payer MEDICAID ==
[~2020-12-31 11:22] MED LIST: Iopamidol-370 76% 500 ML 1 ML ONE
[2020-12-31] MEDS ORDERED: Morphine 4 MG/ML VIAL ONE ×2 (12:17→14:52)
[2020-12-31 12:50] LABS: #Eosinphils 0.1 thou/uL (0.0-0.7); #Lymphocytes 0.7 thou/uL (1.20-3.40); #Monocytes 0.7 thou/uL (0.11-0.59); #Neutrophils 4.3 thou/uL (1.40-6.50); %Basophils 0.8 % (0.0-1.0); %Eosinophils 1.8 % (0.0-10.0); %Lymphocytes 12.4 % (21.0-51.0); %Monocytes 11.8 % (0.0-10.0); %Neutrophils 73.2 % (42.0-75.0); Hemoglobin 8.7 g/dL (12.0-16.0); Mean Corpuscular HGB CONC 31.9 g/dL (32.0-36.0); Mean Corpuscular Hemoglobin 28.2 pg (27.0-31.0); Mean Corpuscular Volume 88.4 fL (78.0-98.0); Mean Platelet Volume 7.4 fL (7.4-10.4); Platelet Count 314 thou/uL (130-400); RBC Distribution Width 15.4 % (11.5-14.5); Red Blood Cell (RBC) Count 3.07 mill/uL (4.20-5.40); White Blood Cell (WBC) Count 5.9 thou/uL (4.8-10.8)
[2020-12-31 13:10] LABS: Albumin 3.3 g/dL (3.4-4.8)
[2020-12-31 13:11] LABS: Chloride 91 mmol/L (98-107); Potassium 4.5 mmol/L (3.5-5.1)
[2020-12-31 13:12] LABS: Calcium 8.3 mg/dL (7.8-10.44); Globulin 2.8 g/dL (2.4-3.5); Glucose 101 mg/dL (80-115); Protein, Total 6.1 g/dL (5.8-8.1)
[2020-12-31 13:14] LABS: Anion Gap 18 mmol/L (10-20); Bilirubin, Total 0.3 mg/dL (0.2-1.2); Carbon Dioxide 23 mmol/L (23-31)
[2020-12-31 13:15] LABS: Alkaline Phosphatase 117 U/L (40-110)
[2020-12-31 13:16] LABS: BUN (Urea Nitrogen) 28 mg/dL (9.8-20.1); Calc. Creatinine Clearance 0 mL/min (70-130)
[2020-12-31 13:17] LABS: AST (SGOT) 22 U/L (5-34)
[2020-12-31 13:18] LABS: ALT (SGPT) 11 U/L (8-55)
[2020-12-31 13:19] LABS: Sodium 127 mmol/L (136-145)
[2020-12-31 14:46] LABS: Bacteria/HPF None Seen HPF (None Seen); Bilirubin Negative (Negative); Blood, Urine Trace (Negative); Clarity Clear (Clear); Glucose, Urine (Dipstick) 30 mg/dL (Negative); Ketone, Urine Negative (Negative); Leukocyte Negative Leu/uL (Negative); Nitrite Negative (Negative); Protein, Urine (Dipstick) 200 mg/dL (Neg-Trace); RBC/HPF 0-3 HPF (0-3); Specific Gravity, Urine 1.008 (1.002-1.036); Squamous Epithelial None Seen HPF (0-3); Urobilinogen Normal mg/dL (Less than 2); WBC/HPF 0-3 HPF (0-3)
[2020-12-31] MEDS ORDERED: Cefepime 2 GM VIAL ONE (14:52)
[2020-12-31] MEDS ORDERED: Vancomycin 1 GM/200 ML BAG ONE (14:52)
[2020-12-31] MEDS ORDERED: Labetalol HCl 100 MG/20 ML VIAL ONE (15:52)
[2020-12-31] MEDS ORDERED: Senokot S 8.6-50 MG TAB PO PRN (17:42)
[2020-12-31] MEDS ORDERED: HYDROcodone/Acetaminophen 5/325 mg Tablet PO PRN (17:42)
[2020-12-31] MEDS ORDERED: Bisacodyl 5 MG TAB PO PRN (17:42)
[2020-12-31] MEDS ORDERED: Ondansetron PF 4 MG/2 ML Vial IVP PRN ×2 (17:42→23:32)
[2020-12-31] MEDS ORDERED: Ondansetron ODT 4 MG TAB PO PRN (17:42)
[2020-12-31] MEDS ORDERED: Morphine 2 MG/ML VIAL SLOW IVP PRN ×2 (17:46→20:23)
[2020-12-31] MEDS ORDERED: Fentanyl 100 MCG/2 ML VIAL ONE (18:01)
[2020-12-31] MEDS: Lidocaine 5% Patch TD SCH (18:14)
[2020-12-31 18:17] VITALS: BMI 38.9
[2020-12-31] MEDS ORDERED: Fentanyl 100 MCG/2 ML VIAL SLOW IVP SCH ×2 (18:30→23:45)
[2020-12-31] MEDS ORDERED: Fentanyl 100 MCG/2 ML VIAL SLOW IVP PRN (18:31)
[2020-12-31] MEDS ORDERED: Dextrose 5% in Water 1,000 ML IV PRN (18:36)
[2020-12-31] MEDS ORDERED: HumaLOG 300 UNITS/3 ML VIAL SC PRN (18:36)
[2020-12-31] MEDS ORDERED: Dexamethasone 12 MG in Sodium Chloride 0.9% 50 ML IVPB SCH (18:45)
[2020-12-31] MEDS ORDERED: Vancomycin HCl 750 MG in Sodium Chloride 0.9% 250 ML 250 ML IVPB SCH (19:00)
[2020-12-31] MEDS ORDERED: Vancomycin Sliding Scale 1 EACH FS ONE (19:00)
[2020-12-31] MEDS ORDERED: Vancomycin HCl 1.25 GM in Sodium Chloride 0.9% 250 ML 250 ML IVPB SCH (19:00)
[2020-12-31] MEDS ORDERED: Vancomycin HCl 500 MG in Sodium Chloride 0.9% 100 ML IVPB SCH (19:00)
[2020-12-31] MEDS ORDERED: Vancomycin 1 GM in Premix Bag 1 BAG IVPB SCH ×2 (19:00→19:15)
[2020-12-31] MEDS ORDERED: HOLD VANCOMYCIN FOR LEVEL >20 FS SCH (19:00)
[2020-12-31 19:35] LABS: Anion Gap 19 mmol/L (10-20); BUN (Urea Nitrogen) 28 mg/dL (9.8-20.1); Calc. Creatinine Clearance 14 mL/min (70-130); Calcium 8.1 mg/dL (7.8-10.44); Carbon Dioxide 19 mmol/L (23-31); Chloride 94 mmol/L (98-107); Glucose 90 mg/dL (80-115); Potassium 4.7 mmol/L (3.5-5.1); Sodium 127 mmol/L (136-145)
[2020-12-31] MEDS: Sodium Chloride 0.9% 500 ML IV SCH (20:49)
[2020-12-31] MEDS: Melatonin 3 MG TAB PO PRN (22:32)
[2020-12-31 23:17] LABS: HBSAg Index 0.22 S/CO (0-0.99); Hep B Surf Ag Non-Reactive S/CO (NonReactive)
[2020-12-31] MEDS ORDERED: Promethazine HCl 25 MG/ML VIAL IM PRN (23:32)
[2020-12-31] MEDS ORDERED: Zolpidem Tartrate 5 MG TAB PO PRN (23:32)
[2020-12-31] MEDS ORDERED: diphenhydrAMINE 50 MG/ML VIAL IM PRN (23:32)
[2020-12-31] MEDS ORDERED: diphenhydrAMINE 50 MG/ML VIAL IVP PRN (23:32)
[2020-12-31] MEDS ORDERED: Naloxone HCl 0.4 mg/ml Vial IV PRN (23:32)
[2020-12-31] MEDS ORDERED: Communication Order-Pharmacy FS SCH (23:45)
[2020-12-31] MEDS: fentaNYL Citrate/PF 2,000 MCG in Sodium Chloride 0.9% 60 ML IV PRN (23:50)
[2021-01-01] MEDS ORDERED: cloNIDine 0.1 MG TAB PO SCH (01:00)
[2021-01-01] MEDS ORDERED: Cefepime 2 GM in Sodium Chloride 0.9% 100 ML IVPB SCH (03:00)
[2021-01-01] MEDS ORDERED: Vancomycin 1 GM in Premix Bag 1 BAG IVPB SCH (04:00)
[2021-01-01] MEDS: Sodium Chloride 0.9% 500 ML IV SCH ×3 (04:09→20:47)
[2021-01-01] MEDS: Transdermal Patch Removal TOP SCH (05:18)
[2021-01-01] MEDS ORDERED: glipiZIDE 10 MG TAB PO SCH (09:00)
[2021-01-01] MEDS ORDERED: hydrALAZINE 20 MG/ML VIAL SLOW IVP PRN (10:30)
[2021-01-01] MEDS: Labetalol HCl 100 MG/20 ML VIAL SLOW IVP PRN (10:49)
[2021-01-01 11:07] LABS: Vancomycin, Random 28.3 ug/mL (See Comment)
[2021-01-01] MEDS: Folic Acid/Vit B Comp W-C PO SCH (12:44)
[2021-01-01] MEDS: NIFEdipine XL 60 MG TAB PO SCH (12:44)
[2021-01-01] MEDS: Aspirin 81 mg Enteric Coated Tablet PO SCH (12:45)
[2021-01-01] MEDS: Atorvastatin Calcium 20 MG TAB PO SCH (12:45)
[2021-01-01] MEDS: Ferrous Sulfate 325 MG TAB PO SCH (12:45)
[2021-01-01] MEDS: Acetaminophen 325 MG TAB PO SCH ×3 (12:48→20:42)
[2021-01-01 12:52] LABS: SARS-CoV-2 PCR by NAA Not Detected (NotDetected)
[2021-01-01] MEDS ORDERED: Heparin 10,000 UNITS/ 10 ML VIAL ONE (14:57)
[2021-01-01] MEDS ORDERED: Cefepime 0.5 GM in Admixture Fee 1 EACH IVPB SCH (15:00)
[2021-01-01] MEDS: Cefepime 0.5 GM in Sodium Chloride 0.9% 100 ML IVPB SCH (15:37)
[2021-01-01] MEDS: Calcium Carbonate 500 MG ChewTAB PO PRN (17:25)
[2021-01-01] MEDS: Lidocaine 5% Patch TD SCH (17:26)
[2021-01-01] MEDS: fentaNYL Citrate/PF 2,000 MCG in Sodium Chloride 0.9% 60 ML IV PRN (20:35)
[2021-01-01] MEDS: Heparin 5,000 UNITS/ML VIAL SC SCH (20:46)
[2021-01-01] MEDS: Dextrose 50% Abboject 50 ML SYRINGE SLOW IVP PRN ×2 (20:57→23:53)
[2021-01-02 01:03] LABS: Glucose POC Confirmation 93 mg/dl (80-115)
[2021-01-02] MEDS: Acetaminophen 325 MG TAB PO SCH ×3 (05:36→17:03)
[2021-01-02] MEDS: Transdermal Patch Removal TOP SCH (05:39)
[2021-01-02] MEDS: Atorvastatin Calcium 20 MG TAB PO SCH (08:18)
[2021-01-02] MEDS: Ferrous Sulfate 325 MG TAB PO SCH (08:18)
[2021-01-02] MEDS: NIFEdipine XL 60 MG TAB PO SCH (08:18)
[2021-01-02] MEDS: Folic Acid/Vit B Comp W-C PO SCH (08:19)
[2021-01-02] MEDS: Aspirin 81 mg Enteric Coated Tablet PO SCH (08:19)
[2021-01-02] MEDS: Heparin 5,000 UNITS/ML VIAL SC SCH ×2 (08:19→20:11)
[2021-01-02] MEDS: fentaNYL Citrate/PF 2,000 MCG in Sodium Chloride 0.9% 60 ML IV PRN ×2 (09:16→18:48)
[2021-01-02] MEDS: Dextrose 50% Abboject 50 ML SYRINGE SLOW IVP PRN ×2 (09:38→17:04)
[2021-01-02] MEDS: Sodium Chloride 0.9% 500 ML IV SCH (10:24)
[2021-01-02] MEDS: Cefepime 0.5 GM in Sodium Chloride 0.9% 100 ML IVPB SCH (15:36)
[2021-01-02] MEDS: Lidocaine 5% Patch TD SCH (17:04)
[2021-01-02] MEDS: Dextrose 5% in Water 1,000 ML IV SCH (18:00)
[2021-01-03] MEDS: Acetaminophen 325 MG TAB PO SCH ×2 (01:09→05:59)
[2021-01-03] MEDS: Dextrose 50% Abboject 50 ML SYRINGE SLOW IVP PRN ×3 (05:31→11:29)
[2021-01-03] MEDS: Folic Acid/Vit B Comp W-C PO SCH (08:59)
[2021-01-03] MEDS: Atorvastatin Calcium 20 MG TAB PO SCH (08:59)
[2021-01-03] MEDS: NIFEdipine XL 60 MG TAB PO SCH (08:59)
[2021-01-03] MEDS: Aspirin 81 mg Enteric Coated Tablet PO SCH (08:59)
[2021-01-03] MEDS: Heparin 5,000 UNITS/ML VIAL SC SCH ×2 (09:00→20:25)
[2021-01-03] MEDS: Ferrous Sulfate 325 MG TAB PO SCH (09:00)
[2021-01-03] MEDS ORDERED: traMADol HCl 50 MG TAB PO PRN (10:32)
[2021-01-03] MEDS: HYDROcodone/Acetaminophen 10/325 mg Tablet PO PRN ×3 (11:28→21:15)
[2021-01-03] MEDS: Transdermal Patch Removal TOP SCH (11:30)
[2021-01-03 14:25] LABS: Anion Gap 9 mmol/L (10-20); BUN (Urea Nitrogen) 10 mg/dL (9.8-20.1); Calc. Creatinine Clearance 43 mL/min (70-130); Calcium 7.9 mg/dL (7.8-10.44); Carbon Dioxide 30 mmol/L (23-31); Chloride 97 mmol/L (98-107); Glucose 82 mg/dL (80-115); Sodium 133 mmol/L (136-145)
[2021-01-03 14:26] LABS: Vancomycin, Trough 15.3 ug/mL
[2021-01-03 14:35] LABS: Potassium 2.9 mmol/L (3.5-5.1)
[2021-01-03 14:42] LABS: Band 9 % (5-11); Eosinophils 8 % (0-10); Helmet Cells SLIGHT = 2-5 cells (100X) (0-1/hpf); Hemoglobin 8.3 g/dL (12.0-16.0); Lymphocytes 8 % (21-51); MDiff Complete? YES; Mean Corpuscular HGB CONC 31.8 g/dL (32.0-36.0); Mean Corpuscular Hemoglobin 28.1 pg (27.0-31.0); Mean Corpuscular Volume 88.2 fL (78.0-98.0); Mean Platelet Volume 6.8 fL (7.4-10.4); Monocytes 11 % (0-10); Neutrophil 63 % (42-75); Platelet Count 355 thou/uL (130-400); Platelet Morphology Comment Appears Adequate; Polychromasia SLIGHT = 2-3 cells (100X) (0-2/hpf); RBC Distribution Width 15.4 % (11.5-14.5); Reactive Lymphocytes 1 % (0-10); Red Blood Cell (RBC) Count 2.96 mill/uL (4.20-5.40); Schistocytes SLIGHT = 2-5 cells (100X) (0-1/hpf); Tear Drops SLIGHT = 2-5 cells (100X) (0-1/hpf); White Blood Cell (WBC) Count 5.3 thou/uL (4.8-10.8)
[2021-01-03] MEDS ORDERED: Vancomycin HCl 500 MG in Sodium Chloride 0.9% 100 ML IVPB SCH (14:45)
[2021-01-03] MEDS: Lidocaine 5% Patch TD SCH (17:18)
[2021-01-03] MEDS: Cefepime 0.5 GM, Admixture Fee 1 EACH in Sodium Chloride 0.9% 100 ML IVPB SCH (17:19)
[2021-01-03] MEDS: Dextrose 5% in Water 1,000 ML IV SCH (17:20)
[2021-01-04] MEDS: Transdermal Patch Removal TOP SCH (05:59)
[2021-01-04] MEDS: HYDROcodone/Acetaminophen 10/325 mg Tablet PO PRN ×3 (08:03→21:00)
[2021-01-04] MEDS: Atorvastatin Calcium 20 MG TAB PO SCH (08:04)
[2021-01-04] MEDS: NIFEdipine XL 60 MG TAB PO SCH (08:04)
[2021-01-04] MEDS: Ferrous Sulfate 325 MG TAB PO SCH (08:04)
[2021-01-04] MEDS: Heparin 5,000 UNITS/ML VIAL SC SCH ×2 (08:05→20:18)
[2021-01-04] MEDS: Folic Acid/Vit B Comp W-C PO SCH (08:05)
[2021-01-04] MEDS: Aspirin 81 mg Enteric Coated Tablet PO SCH (08:05)
[2021-01-04 08:39] LABS: Vancomycin, Random 24.3 ug/mL (See Comment)
[2021-01-04] MEDS: Dextrose 5% in Water 1,000 ML IV SCH (10:59)
[2021-01-04 11:32] LABS: Anion Gap 17 mmol/L (10-20); BUN (Urea Nitrogen) 24 mg/dL (9.8-20.1); Calc. Creatinine Clearance 77 mL/min (70-130); Calcium 8.1 mg/dL (7.8-10.44); Carbon Dioxide 22 mmol/L (23-31); Chloride 103 mmol/L (98-107); Glucose 495 mg/dL (80-115); Potassium 4.6 mmol/L (3.5-5.1); Sodium 137 mmol/L (136-145)
[2021-01-04] MEDS: Cefepime 0.5 GM, Admixture Fee 1 EACH in Sodium Chloride 0.9% 100 ML IVPB SCH (16:24)
[2021-01-04] MEDS: Labetalol HCl 100 MG/20 ML VIAL SLOW IVP PRN (16:29)
[2021-01-04] MEDS: Lidocaine 5% Patch TD SCH (17:14)
[2021-01-04] MEDS: Melatonin 3 MG TAB PO PRN (21:00)
[2021-01-04] MEDS: Calcium Carbonate 500 MG ChewTAB PO PRN (22:02)
[2021-01-05] MEDS: Transdermal Patch Removal TOP SCH (05:36)
[2021-01-05] MEDS: HYDROcodone/Acetaminophen 10/325 mg Tablet PO PRN ×3 (05:53→19:10)
[2021-01-05] MEDS: Calcium Carbonate 500 MG ChewTAB PO PRN (05:53)
[2021-01-05] MEDS: Dextrose 5% in Water 1,000 ML IV SCH (05:56)
[2021-01-05] MEDS: Ferrous Sulfate 325 MG TAB PO SCH (08:00)
[2021-01-05 08:34] LABS: Anion Gap 13 mmol/L (10-20); BUN (Urea Nitrogen) 17 mg/dL (9.8-20.1); Calc. Creatinine Clearance 24 mL/min (70-130); Carbon Dioxide 27 mmol/L (23-31); Chloride 97 mmol/L (98-107); Potassium 3.8 mmol/L (3.5-5.1); Sodium 133 mmol/L (136-145)
[2021-01-05 08:35] LABS: Calcium 8.1 mg/dL (7.8-10.44); Glucose 94 mg/dL (80-115)
[2021-01-05] MEDS: Heparin 5,000 UNITS/ML VIAL SC SCH ×2 (09:00→20:07)
[2021-01-05] MEDS: Folic Acid/Vit B Comp W-C PO SCH (09:00)
[2021-01-05] MEDS: Atorvastatin Calcium 20 MG TAB PO SCH (09:00)
[2021-01-05] MEDS: Aspirin 81 mg Enteric Coated Tablet PO SCH (09:00)
[2021-01-05] MEDS: NIFEdipine XL 60 MG TAB PO SCH (09:00)
[2021-01-05] MEDS ORDERED: Heparin 10,000 UNITS/ 10 ML VIAL ONE (09:29)
[2021-01-05 11:37] LABS: Vancomycin, Trough 13.1 ug/mL
[2021-01-05] MEDS ORDERED: NIFEdipine XL 60 MG TAB PO SCH (13:15)
[2021-01-05] MEDS ORDERED: Aspirin 81 mg Enteric Coated Tablet PO SCH (13:15)
[2021-01-05] MEDS ORDERED: Folic Acid/Vit B Comp W-C PO SCH (13:15)
[2021-01-05] MEDS ORDERED: Ferrous Sulfate 325 MG TAB PO SCH (13:15)
[2021-01-05] MEDS ORDERED: Atorvastatin Calcium 20 MG TAB PO SCH (13:15)
[2021-01-05] MEDS ORDERED: Vancomycin HCl 750 MG in Sodium Chloride 0.9% 250 ML 250 ML IVPB SCH (14:15)
[2021-01-05] MEDS: Cefepime 0.5 GM, Admixture Fee 1 EACH in Sodium Chloride 0.9% 100 ML IVPB SCH (16:01)
[2021-01-05] MEDS: Lidocaine 5% Patch TD SCH (18:44)
[2021-01-05] MEDS: diphenhydrAMINE 25 MG CAP PO PRN (20:07)
[2021-01-06] MEDS: Dextrose 5% in Water 1,000 ML IV SCH ×2 (01:35→05:52)
[2021-01-06] MEDS: HYDROcodone/Acetaminophen 10/325 mg Tablet PO PRN ×3 (03:44→21:00)
[2021-01-06] MEDS: Transdermal Patch Removal TOP SCH (05:51)
[2021-01-06] MEDS: NIFEdipine XL 60 MG TAB PO SCH (08:15)
[2021-01-06] MEDS: Aspirin 81 mg Enteric Coated Tablet PO SCH (08:16)
[2021-01-06] MEDS: Ferrous Sulfate 325 MG TAB PO SCH (08:16)
[2021-01-06] MEDS: Heparin 5,000 UNITS/ML VIAL SC SCH ×2 (08:16→21:00)
[2021-01-06] MEDS: Atorvastatin Calcium 20 MG TAB PO SCH (08:16)
[2021-01-06] MEDS: Folic Acid/Vit B Comp W-C PO SCH (08:16)
[2021-01-06] MEDS: Cefepime 0.5 GM, Admixture Fee 1 EACH in Sodium Chloride 0.9% 100 ML IVPB SCH (14:01)
[2021-01-06] MEDS: Lidocaine 5% Patch TD SCH (17:53)
[2021-01-06] MEDS: diphenhydrAMINE 25 MG CAP PO PRN (21:00)
[2021-01-07] MEDS: HYDROcodone/Acetaminophen 10/325 mg Tablet PO PRN ×2 (04:50→15:19)
[2021-01-07] MEDS: Transdermal Patch Removal TOP SCH (06:23)
[2021-01-07] MEDS: Heparin 5,000 UNITS/ML VIAL SC SCH ×2 (08:21→20:25)
[2021-01-07] MEDS: NIFEdipine XL 60 MG TAB PO SCH (08:21)
[2021-01-07] MEDS: Folic Acid/Vit B Comp W-C PO SCH (08:21)
[2021-01-07] MEDS: Ferrous Sulfate 325 MG TAB PO SCH (08:22)
[2021-01-07] MEDS: Atorvastatin Calcium 20 MG TAB PO SCH (08:22)
[2021-01-07] MEDS: Aspirin 81 mg Enteric Coated Tablet PO SCH (08:22)
[2021-01-07 09:38] LABS: #Basophils 0.1 thou/uL (0.0-0.2); #Eosinphils 0.7 thou/uL (0.0-0.7); #Lymphocytes 1.5 thou/uL (1.20-3.40); #Monocytes 0.8 thou/uL (0.11-0.59); #Neutrophils 5.2 thou/uL (1.40-6.50); %Basophils 0.7 % (0.0-1.0); %Eosinophils 8.1 % (0.0-10.0); %Lymphocytes 17.7 % (21.0-51.0); %Monocytes 9.8 % (0.0-10.0); %Neutrophils 63.8 % (42.0-75.0); Hemoglobin 8.3 g/dL (12.0-16.0); Mean Corpuscular HGB CONC 33.6 g/dL (32.0-36.0); Mean Corpuscular Hemoglobin 29.4 pg (27.0-31.0); Mean Corpuscular Volume 87.5 fL (78.0-98.0); Mean Platelet Volume 6.5 fL (7.4-10.4); Platelet Count 417 thou/uL (130-400); RBC Distribution Width 15.3 % (11.5-14.5); Red Blood Cell (RBC) Count 2.82 mill/uL (4.20-5.40); White Blood Cell (WBC) Count 8.2 thou/uL (4.8-10.8)
[2021-01-07 10:04] LABS: ALT (SGPT) 14 U/L (8-55); AST (SGOT) 25 U/L (5-34); Alkaline Phosphatase 106 U/L (40-110); Anion Gap 13 mmol/L (10-20); BUN (Urea Nitrogen) 17 mg/dL (9.8-20.1); Bilirubin, Total 0.2 mg/dL (0.2-1.2); CRP (Inflammatory) 1.38 mg/dL (= or < 0.5); Calc. Creatinine Clearance 26 mL/min (70-130); Calcium 8.5 mg/dL (7.8-10.44); Carbon Dioxide 27 mmol/L (23-31); Chloride 96 mmol/L (98-107); Glucose 85 mg/dL (80-115); Potassium 3.7 mmol/L (3.5-5.1); Sodium 132 mmol/L (136-145)
[2021-01-07 10:43] LABS: Vancomycin, Random 20.9 ug/mL (See Comment)
[2021-01-07] MEDS: Cefepime 0.5 GM, Admixture Fee 1 EACH in Sodium Chloride 0.9% 100 ML IVPB SCH (15:17)
[2021-01-07] MEDS: Lidocaine 5% Patch TD SCH (17:39)
[2021-01-08] MEDS: HYDROcodone/Acetaminophen 10/325 mg Tablet PO PRN ×4 (00:19→21:44)
[2021-01-08] MEDS: Melatonin 3 MG TAB PO PRN (00:21)
[2021-01-08] MEDS: Transdermal Patch Removal TOP SCH (05:35)
[2021-01-08] MEDS: NIFEdipine XL 60 MG TAB PO SCH (08:11)
[2021-01-08] MEDS: Atorvastatin Calcium 20 MG TAB PO SCH (08:11)
[2021-01-08] MEDS: Ferrous Sulfate 325 MG TAB PO SCH (08:11)
[2021-01-08] MEDS: Folic Acid/Vit B Comp W-C PO SCH (08:11)
[2021-01-08] MEDS: Heparin 5,000 UNITS/ML VIAL SC SCH ×2 (08:11→22:19)
[2021-01-08] MEDS ORDERED: Heparin 10,000 UNITS/ 10 ML VIAL ONE (08:43)
[2021-01-08 09:09] LABS: Vancomycin, Random 21.3 ug/mL (See Comment)
[2021-01-08] MEDS: EPOETIN ALFA-EPBX (ESRD) 10,000 UNIT/ML VIAL SC SCH (09:57)
[2021-01-08] MEDS: Aspirin 81 mg Enteric Coated Tablet PO SCH (10:28)
[2021-01-08] MEDS ORDERED: Epoetin (ESRD) 20,000 UNITS/ML IVP SCH (12:16)
[2021-01-08] MEDS: Cefepime 0.5 GM, Admixture Fee 1 EACH in Sodium Chloride 0.9% 100 ML IVPB SCH (15:38)
[2021-01-08] MEDS: Lidocaine 5% Patch TD SCH (17:10)
[2021-01-09 00:41] LABS: SARS-CoV-2 PCR by NAA Not Detected (NotDetected)
[2021-01-09] MEDS: HYDROcodone/Acetaminophen 10/325 mg Tablet PO PRN ×4 (05:29→20:00)
[2021-01-09] MEDS: Transdermal Patch Removal TOP SCH (06:36)
[2021-01-09] MEDS: NIFEdipine XL 60 MG TAB PO SCH (07:58)
[2021-01-09] MEDS: Atorvastatin Calcium 20 MG TAB PO SCH (07:58)
[2021-01-09] MEDS: Aspirin 81 mg Enteric Coated Tablet PO SCH (07:58)
[2021-01-09] MEDS: Folic Acid/Vit B Comp W-C PO SCH (07:58)
[2021-01-09] MEDS: Ferrous Sulfate 325 MG TAB PO SCH (07:59)
[2021-01-09] MEDS: Heparin 5,000 UNITS/ML VIAL SC SCH ×2 (08:01→20:04)
[2021-01-09] MEDS ORDERED: Fentanyl 100 MCG/2 ML VIAL ONE ×4 (11:59→14:38)
[2021-01-09] MEDS ORDERED: Sodium Chloride 0.9% 20 ML ONE (12:07)
[2021-01-09] MEDS ORDERED: Lidocaine 1% w/Epinephrine 1:100K 20 ML VIAL ONE (12:07)
[2021-01-09] MEDS ORDERED: Bupivacaine PF 0.5% 30 ML VIAL ONE (12:07)
[2021-01-09] MEDS ORDERED: Famotidine/PF 20 mg/2ml Vial ONE (12:13)
[2021-01-09] MEDS ORDERED: ceFAZolin 2 GM/DEX 5% 100 ML BAG ONE (12:43)
[2021-01-09] MEDS ORDERED: Rocuronium Bromide 10 MG/ML (10ML VIAL) ONE (12:50)
[2021-01-09] MEDS ORDERED: Metoclopramide HCl 10 MG/2 ML VIAL ONE (12:50)
[2021-01-09] MEDS ORDERED: Ondansetron PF 4 MG/2 ML Vial ONE (12:50)
[2021-01-09] MEDS ORDERED: PROPOFOL 200 MG/20 ML VIAL ONE (12:50)
[2021-01-09] MEDS ORDERED: SUGAMMADEX SODIUM 200 MG/2 ML VIAL ONE (13:03)
[2021-01-09] MEDS ORDERED: Ondansetron HCl/PF 4 MG/2 ML Vial IVP PRN (13:52)
[2021-01-09] MEDS ORDERED: Morphine Sulfate 2 MG/ML SYRINGE SLOW IVP PRN (13:52)
[2021-01-09] MEDS ORDERED: Morphine 4 MG/ML VIAL ONE (14:00)
[2021-01-09] MEDS: Cefepime 0.5 GM, Admixture Fee 1 EACH in Sodium Chloride 0.9% 100 ML IVPB SCH (15:53)
[2021-01-09] MEDS: Lidocaine 5% Patch TD SCH (17:59)
[2021-01-09] MEDS: Fentanyl 100 MCG/2 ML VIAL SLOW IVP PRN (18:19)
[2021-01-09] MEDS: Calcium Carbonate 500 MG ChewTAB PO PRN (20:00)
[2021-01-09] MEDS: Melatonin 3 MG TAB PO PRN (20:00)
[2021-01-10] MEDS: HYDROcodone/Acetaminophen 10/325 mg Tablet PO PRN ×4 (00:14→17:56)
[2021-01-10] MEDS: Transdermal Patch Removal TOP SCH (05:07)
[2021-01-10 08:55] LABS: Mean Corpuscular Hemoglobin 28.5 pg (27.0-31.0); Mean Corpuscular Volume 88.9 fL (78.0-98.0); Mean Platelet Volume 6.3 fL (7.4-10.4); Platelet Count 427 thou/uL (130-400); RBC Distribution Width 15.8 % (11.5-14.5); Red Blood Cell (RBC) Count 2.82 mill/uL (4.20-5.40); White Blood Cell (WBC) Count 8.4 thou/uL (4.8-10.8)
[2021-01-10 09:04] LABS: Vancomycin, Random 12.9 ug/mL (See Comment)
[2021-01-10 09:05] LABS: Anion Gap 10 mmol/L (10-20); BUN (Urea Nitrogen) 15 mg/dL (9.8-20.1); Calc. Creatinine Clearance 24 mL/min (70-130); Calcium 8.5 mg/dL (7.8-10.44); Carbon Dioxide 29 mmol/L (23-31); Chloride 97 mmol/L (98-107); Glucose 111 mg/dL (80-115); Potassium 3.9 mmol/L (3.5-5.1); Sodium 132 mmol/L (136-145)
[2021-01-10] MEDS ORDERED: Heparin 10,000 UNITS/ 10 ML VIAL ONE (09:07)
[2021-01-10 10:28] LABS: Band 3 % (5-11); Eosinophils 10 % (0-10); Lymphocytes 11 % (21-51); MDiff Complete? YES; Monocytes 7 % (0-10); Neutrophil 68 % (42-75); Platelet Morphology Comment Appears Increased; Polychromasia SLIGHT = 2-3 cells (100X) (0-2/hpf)
[2021-01-10] MEDS: EPOETIN ALFA-EPBX (ESRD) 10,000 UNIT/ML VIAL SC SCH (10:33)
[2021-01-10] MEDS: Ferrous Sulfate 325 MG TAB PO SCH (12:43)
[2021-01-10] MEDS: Folic Acid/Vit B Comp W-C PO SCH (12:43)
[2021-01-10] MEDS: NIFEdipine XL 60 MG TAB PO SCH (12:43)
[2021-01-10] MEDS: Atorvastatin Calcium 20 MG TAB PO SCH (12:43)
[2021-01-10] MEDS: Aspirin 81 mg Enteric Coated Tablet PO SCH (12:44)
[2021-01-10] MEDS: Heparin 5,000 UNITS/ML VIAL SC SCH (12:44)
[2021-01-10] MEDS: Cefepime 0.5 GM, Admixture Fee 1 EACH in Sodium Chloride 0.9% 100 ML IVPB SCH (14:47)
[2021-01-10] MEDS: Fentanyl 100 MCG/2 ML VIAL SLOW IVP PRN (14:47)
[2021-01-10 17:54] VITALS: BP 181/76; TEMP 98.4
[2021-01-10] MEDS: Lidocaine 5% Patch TD SCH (17:56)
== END 2021-01-10 19:40 | disposition home or self-care (01) | DRG 94 ==
LOC: ERS 11:22 → T4-A 15:39
PROVIDERS: ADMIT Internal Medicine; ATTEND Internal Medicine
PROC: 5A1D70Z Performance of Urinary Filtration, Intermittent, Less than 6 Hours Per Day (ICD-10-PCS; 2021-01-01)
PROC: 0JH63XZ Insertion of Tunneled Vascular Access Device into Chest Subcutaneous Tissue and Fascia, Percutaneous Approach (ICD-10-PCS; principal; 2021-01-09)
PROC: 02HV33Z Insertion of Infusion Device into Superior Vena Cava, Percutaneous Approach (ICD-10-PCS; 2021-01-09)
PROC: B5181ZA Fluoroscopy of Superior Vena Cava using Low Osmolar Contrast, Guidance (ICD-10-PCS; 2021-01-09)
PROC: B548ZZA Ultrasonography of Superior Vena Cava, Guidance (ICD-10-PCS; 2021-01-09)
DX: G06.1 Intraspinal abscess and granuloma (principal); N18.6 End stage renal disease; M46.24 Osteomyelitis of vertebra, thoracic region; E87.1 Hypo-osmolality and hyponatremia; I12.0 Hypertensive chronic kidney disease with stage 5 chronic kidney disease or end stage renal disease; Z20.822 Contact with and (suspected) exposure to COVID-19; E11.22 Type 2 diabetes mellitus with diabetic chronic kidney disease; E88.81 Metabolic syndrome and other insulin resistance; E66.01 Morbid (severe) obesity due to excess calories; E78.00 Pure hypercholesterolemia, unspecified; E11.69 Type 2 diabetes mellitus with other specified complication; D63.1 Anemia in chronic kidney disease; I25.10 Atherosclerotic heart disease of native coronary artery without angina pectoris; E78.2 Mixed hyperlipidemia; I16.0 Hypertensive urgency; M46.44 Discitis, unspecified, thoracic region; M48.04 Spinal stenosis, thoracic region; E11.649 Type 2 diabetes mellitus with hypoglycemia without coma; Z68.39 Body mass index [BMI] 39.0-39.9, adult; Z28.21 Immunization not carried out because of patient refusal; Z99.2 Dependence on renal dialysis; Z90.49 Acquired absence of other specified parts of digestive tract; Z79.899 Other long term (current) drug therapy; Z79.82 Long term (current) use of aspirin; Z79.84 Long term (current) use of oral hypoglycemic drugs; Z98.51 Tubal ligation status; Z83.3 Family history of diabetes mellitus
CPT/HCPCS: 36415; 36416; 51701; 71045; 72129; 72132; 72146; 72148; 80048; 80053; 80202; 81003; 81015; 82947; 85007; 85025; 85027; 85652; 86140; 87040; 87086; 87340; 90935; 93005; 96365; 96367; 96375; 96376; C1751; G0257; J0692; J1100; J1642; J1644; J1815; J2270; J2405; J2704; J2765; J3010; J3370; J3490; J7050; J7070; Q0162; Q0163; Q5105; Q9967; S0020; S0028; U0003; U0005

== ENCOUNTER 2021-01-12 11:58 | Emergency (ER) | payer MEDICAID, SELFPAY ==
[2021-01-12 13:05] LABS: #Eosinphils 0.3 thou/uL (0.0-0.7); #Lymphocytes 1.1 thou/uL (1.20-3.40); #Monocytes 0.9 thou/uL (0.11-0.59); #Neutrophils 7.3 thou/uL (1.40-6.50); %Basophils 0.5 % (0.0-1.0); %Eosinophils 2.7 % (0.0-10.0); %Lymphocytes 11.6 % (21.0-51.0); %Monocytes 9.1 % (0.0-10.0); %Neutrophils 76.1 % (42.0-75.0); Hemoglobin 9.1 g/dL (12.0-16.0); Mean Corpuscular HGB CONC 31.1 g/dL (32.0-36.0); Mean Corpuscular Hemoglobin 27.4 pg (27.0-31.0); Mean Platelet Volume 6.3 fL (7.4-10.4); Platelet Count 503 thou/uL (130-400); RBC Distribution Width 16.4 % (11.5-14.5); White Blood Cell (WBC) Count 9.6 thou/uL (4.8-10.8)
[2021-01-12 13:33] LABS: ALT (SGPT) Less than 7 U/L (8-55); AST (SGOT) 25 U/L (5-34); Albumin 3.2 g/dL (3.4-4.8); Alkaline Phosphatase 146 U/L (40-110); Anion Gap 13 mmol/L (10-20); BUN (Urea Nitrogen) 20 mg/dL (9.8-20.1); Bilirubin, Total 0.4 mg/dL (0.2-1.2); Calc. Creatinine Clearance 0 mL/min (70-130); Calcium 8.6 mg/dL (7.8-10.44); Carbon Dioxide 28 mmol/L (23-31); Chloride 97 mmol/L (98-107); Globulin 2.8 g/dL (2.4-3.5); Glucose 104 mg/dL (80-115); Sodium 134 mmol/L (136-145)
[2021-01-12] MEDS ORDERED: hydrALAZINE 25 MG TAB ONE (16:14)
[2021-01-12] MEDS ORDERED: Ondansetron ODT 4 MG TAB ONE (16:39)
== END 2021-01-12 16:37 | disposition home or self-care (01) ==
LOC: ERS 11:58
DX: I12.0 Hypertensive chronic kidney disease with stage 5 chronic kidney disease or end stage renal disease (principal); N18.6 End stage renal disease; Z99.2 Dependence on renal dialysis; E78.5 Hyperlipidemia, unspecified; E78.00 Pure hypercholesterolemia, unspecified; E11.9 Type 2 diabetes mellitus without complications; E66.9 Obesity, unspecified
CPT/HCPCS: 36415; 80053; 85025; 93005; Q0162

== ENCOUNTER 2021-01-13 14:26 | Emergency (ER) | payer MEDICAID, SELFPAY ==
[2021-01-13] MEDS ORDERED: Morphine 4 MG/ML VIAL ONE (15:57)
== END 2021-01-13 16:33 | disposition home or self-care (01) ==
LOC: ERS 14:26
DX: I12.0 Hypertensive chronic kidney disease with stage 5 chronic kidney disease or end stage renal disease (principal); E11.22 Type 2 diabetes mellitus with diabetic chronic kidney disease; N18.6 End stage renal disease; M54.50 Low back pain, unspecified; E78.5 Hyperlipidemia, unspecified; E78.00 Pure hypercholesterolemia, unspecified; E66.9 Obesity, unspecified; Z99.2 Dependence on renal dialysis; Z79.899 Other long term (current) drug therapy
CPT/HCPCS: 96374; J2270